=== PATIENT | female | born 1945 | race Caucasian/White ===

== ENCOUNTER 2020-10-13 20:07 | Outpatient (REF) | payer MEDICARE, SELFPAY ==
[2020-10-13 20:56] LABS: Abs Immature Grans 0.03 10^3/uL (0.0-0.06); Absolute Basophil Count 0.09 10^3/uL (0.0-0.2); Absolute Eosinophil Count 0.27 10^3/uL (0.0-0.7); Absolute Lymphocyte Count 2.27 10^3/uL (1.2-3.4); Absolute Monocyte Count 0.87 10^3/uL (0.1-0.8); Absolute Neutrophil Count 3.62 10^3/uL (1.2-6.7); Basophils % 1.3; Eosinophils % 3.8; HCT 39.1 % (36.0-46.0); HGB 13.1 g/dL (11.2-15.7); Immature Grans % 0.4; Lymphocytes % 31.7; MCH 30.2 pg (27.0-33.0); MCHC 33.5 % (32.0-36.0); MCV 90.1 fL (80-95); Monocytes % 12.2; Neutrophils % 50.6; Nucleated RBC 0 %; Platelet Count 351 10^3/uL (130-400); RBC 4.34 10^6/uL (3.93-5.22); RDW 12.3 % (11.7-14.6); RDW-SD 40.5 fL; WBC 7.15 10^3/uL (4.4-10.8)
[2020-10-13 21:05] LABS: ALT 34 U/L (14-59); AST 25 U/L (15-37); Alkaline Phosphatase 77 U/L (46-116); Anion Gap 7.2 mmol/L (3-11); BUN 28 mg/dL (7-18); Bilirubin, Total 0.3 mg/dL (0.2-1.0); C-Reactive Protein 0.12 mg/dL (0.0-0.3); CO2 28.8 mmol/L (21.0-32.0); CREATININE 1.65 mg/dL (0.55-1.02); Calcium 9.3 mg/dL (8.5-10.1); Chloride 102 mmol/L (98-107); Estimated GFR 30.17 (mL/min/1.73m2); Glucose 101 mg/dL (74-106); Potassium 3.9 mmol/L (3.5-5.1); Sodium 138 mmol/L (136-145); Total Protein 7.6 g/dL (6.4-8.2)
[2020-10-13 21:17] LABS: Calculated LDL 173 mg/dL (<100); Cholesterol 271 mg/dL (<200); HDL Cholesterol 55 mg/dL (40-60); Triglyceride 215 mg/dL (<150)
[2020-10-13 21:31] LABS: ESR 38 mm/hr (0-30)
== END 2020-10-13 20:27 ==
LOC: NCHCN 20:07
PROVIDERS: PCP Internal Medicine; Visit Provider Internal Medicine
DX: I10 Essential (primary) hypertension (principal); E78.5 Hyperlipidemia, unspecified; K62.5 Hemorrhage of anus and rectum
CPT/HCPCS: 80053; 80061; 85652; 85025; 86140

== ENCOUNTER 2021-01-12 19:14 | Outpatient (REF) | payer MEDICARE, SELFPAY ==
[2021-01-12 21:38] LABS: Anion Gap 10.1 mmol/L (3-11); BUN 24 mg/dL (7-18); CO2 25.9 mmol/L (21.0-32.0); CREATININE 1.6 mg/dL (0.55-1.02); Calcium 10.2 mg/dL (8.5-10.1); Chloride 106 mmol/L (98-107); Estimated GFR 31.26 (mL/min/1.73m2); Glucose 91 mg/dL (74-106); Potassium 4.3 mmol/L (3.5-5.1); Sodium 142 mmol/L (136-145)
== END 2021-01-12 19:15 | disposition home or self-care (01) ==
LOC: NCHCN 19:14
PROVIDERS: PCP Internal Medicine; Visit Provider Internal Medicine
DX: I10 Essential (primary) hypertension (principal); N18.30 Chronic kidney disease, stage 3 unspecified
CPT/HCPCS: 80048

== ENCOUNTER 2021-01-19 15:10 | Outpatient (REF) | payer MEDICARE, SELFPAY ==
[2021-01-19 13:41] LABS: WBC 0-2 HPF (0-5)
[2021-01-19 13:42] LABS: Bacteria Negative HPF (Negative); C & S Indicated? Yes; Casts Negative LPF (Negative); Crystals Negative HPF (Negative); Epithelial Cells Rare HPF (Negative); Mucus Negative (Negative); Other Cells Rare Renal (Negative); RBC Negative HPF (0-2)
[2021-01-19 13:57] LABS: Microalb ug/mg Crea 18.3 ug/mg Cr
== END 2021-01-19 15:11 | disposition home or self-care (01) ==
LOC: NCHCN 15:10
PROVIDERS: PCP Internal Medicine; Visit Provider Internal Medicine
DX: N18.30 Chronic kidney disease, stage 3 unspecified (principal)
CPT/HCPCS: 81015; 82043; 82570; 87086

== ENCOUNTER 2024-02-21 18:50 | Outpatient (REF) | payer BC, SELFPAY ==
[2024-02-21 21:08] LABS: Abs Immature Grans 0.01 10^3/uL (0.0-0.06); Absolute Basophil Count 0.08 10^3/uL (0.0-0.2); Absolute Eosinophil Count 0.49 10^3/uL (0.0-0.7); Absolute Lymphocyte Count 2.07 10^3/uL (1.2-3.4); Absolute Monocyte Count 0.84 10^3/uL (0.1-0.8); Absolute Neutrophil Count 3.46 10^3/uL (1.2-6.7); Basophils % 1.2 %; Eosinophils % 7.1 %; HCT 36.5 % (36.0-46.0); HGB 12.3 g/dL (11.2-15.7); Immature Grans % 0.1 %; Lymphocytes % 29.8 %; MCH 31.1 pg (27.0-33.0); MCHC 33.7 % (32.0-36.0); MCV 92 fL (80-95); MPV 10.4 fL (8.0-11.0); Monocytes % 12.1 %; Neutrophils % 49.7 %; Platelet Count 314 10^3/uL (130-400); RBC 3.96 10^6/uL (3.93-5.22); RDW 12.5 % (11.7-14.6); RDW-SD 42.5 fL; WBC 6.95 10^3/uL (4.4-10.8)
[2024-02-21 21:40] LABS: ALT 23 U/L (14-59); AST 22 U/L (15-37); Albumin 3.1 g/dL (3.4-5.0); Alkaline Phosphatase 75 U/L (46-116); Anion Gap 6.9 mmol/L (3-11); BUN 47 mg/dL (7-18); Bilirubin, Total 0.3 mg/dL (0.2-1.0); CO2 27.1 mmol/L (21.0-32.0); CREATININE 1.9 mg/dL (0.55-1.02); Calcium 9.3 mg/dL (8.5-10.1); Calculated LDL 134 mg/dL (<100); Chloride 108 mmol/L (98-107); Cholesterol 247 mg/dL (<200); Estimated GFR 26.36 (mL/min/1.73m2); Glucose 112 mg/dL (74-106); HDL Cholesterol 57 mg/dL (40-60); Potassium 3.9 mmol/L (3.5-5.1); Sodium 142 mmol/L (136-145); Total Protein 7.2 g/dL (6.4-8.2); Triglyceride 281 mg/dL (<150)
== END 2024-02-21 18:51 | disposition home or self-care (01) ==
LOC: NCHCN 18:50
PROVIDERS: PCP Internal Medicine; Visit Provider Family Medicine
DX: N18.30 Chronic kidney disease, stage 3 unspecified (principal); E78.5 Hyperlipidemia, unspecified
CPT/HCPCS: 80053; 80061; 85025